=== PATIENT | female | born 1935 | race Hispanic/Latino ===

== ENCOUNTER 2020-05-26 04:58 | Inpatient (IN) | payer OTHER, MEDICARE ==
[~2020-05-26] VITALS: Ht 152.4 cm; Wt 84.6 kg
[~2020-05-26 04:58] MED LIST: ACET-2247 PO; CALC-483 PO; CHOL200012 PO; Cephalexin PO; FERR324T4 PO; FOLI1TAB15 PO; LISI-617 PO; METO25TA6 PO; METR500T PO; MULT-1258 PO; PANT40TA54 PO; ROSU20TA23 PO; ZINC56.7 TP
[2020-05-26 05:16] LABS: BASOPHILS % (AUTO) 0.5 % (0.0-5.0); EOSINOPHILS % (AUTO) 0.9 % (0.0-8.0); HEMATOCRIT 37.2 % (36-48); LYMPHOCYTES % (AUTO) 22.5 % (21.0-51.0); MEAN CORPUSCULAR HGB CONC 32.8 g/dL (32.0-36.0); MEAN CORPUSCULAR VOLUME 88.4 fL (79-99); MONOCYTES % (AUTO) 5.6 % (3.0-13.0); NEUTROPHILS % (AUTO) 70.2 % (40.0-77.0); PLATELET COUNT (AUTO) 252 K/uL (130-400); RED BLOOD CELL COUNT(AUTO) 4.21 MIL/uL (4.00-5.50); RED CELL DISTRIBUTION WIDTH 14.9 % (11.0-15.5); WHITE BLOOD COUNT (AUTO) 12.9 K/uL (4.8-10.8)
[2020-05-26 05:25] LABS: CREATININE 1.4 mg/dL (0.5-1.5); POTASSIUM 3.9 mmol/L (3.5-5.1)
[2020-05-26] MEDS ORDERED: ONDANSETRON HCL 4 MG/2 ML VIAL ONE ×2 (05:28→07:17)
[2020-05-26 05:29] LABS: INR 0.94 (0.85-1.15); PARTIAL THROMBOPLASTIN TIME 23.4 SEC (26.3-35.5); PROTHROMBIN TIME 10.2 SEC (9.6-11.6)
[2020-05-26] MEDS ORDERED: MORPHINE SULFATE 4 MG/1ML SYG ONE ×3 (05:29→10:08)
[2020-05-26 05:30] LABS: ALBUMIN 3.3 g/dL (3.5-5.0); BILIRUBIN,TOTAL 0.7 mg/dL (0.2-1.0); TOTAL PROTEIN, SERUM 7.7 g/dL (6.0-8.3)
[2020-05-26 05:52] LABS: APPEARANCE,URINE Cloudy (CLEAR); BILIRUBIN,URINE Negative (NEGATIVE); COLOR,URINE Yellow (YELLOW); GLUCOSE, URINE (UA) TRACE mg/dL (NEGATIVE); KETONES,URINE Negative (NEGATIVE); LEUKOCYTE ESTERASE ,URINE Moderate (NEGATIVE); NITRATE,URINE Positive (NEGATIVE); OCCULT BLOOD,URINE Trace (NEGATIVE); PROTEIN,URINE POS 1+ mg/dL (NEGATIVE); UROBILINOGEN,URINE 0.2 mg/dL (0.2-1.0)
[2020-05-26 05:59] LABS: BACTERIA,URINE Many /HPF (None Seen); MUCUS,URINE Few LPF (None Seen); SQUAMOUS EPITHELIAL CELL,UR Rare /HPF (0-2)
[2020-05-26] MEDS ORDERED: IOHEXOL-350 75 ML VIAL IV ONE (06:06)
[2020-05-26] MEDS ORDERED: ONDANSETRON HCL 4 MG/2 ML VIAL IVP PRN (09:00)
[2020-05-26] MEDS ORDERED: SODIUM CHLORIDE 0.9% 1000ML 1,000 ML IV SCH ×2 (09:00→11:17)
[2020-05-26] MEDS ORDERED: MORPHINE SULFATE 4 MG/1ML SYG IVP PRN (09:00)
[2020-05-26] MEDS ORDERED: KETOROLAC TROMETHAMINE 15MG/ML ONE (10:08)
[2020-05-26 10:45] VITALS: BP 116/77
[2020-05-26] MEDS ORDERED: KETOROLAC TROMETHAMINE 15MG/ML IV PRN (11:00)
[2020-05-26] MEDS ORDERED: HYDROCODONE/ACETAMINOPHEN 5/325 MG TAB PO PRN (11:30)
[2020-05-26] MEDS ORDERED: INSULIN R PO SS1 SQ SCH (11:30)
[2020-05-26] MEDS ORDERED: NITROGLYCERIN 0.4 MG SL TAB SL PRN (11:30)
[2020-05-26] MEDS ORDERED: LACTULOSE 20 GM/30 ML UDCUP PO PRN (11:30)
[2020-05-26] MEDS ORDERED: ONDANSETRON HCL 4 MG/2 ML VIAL IV PRN (11:30)
[2020-05-26] MEDS ORDERED: ACETAMINOPHEN 325 MG TAB PO PRN (11:30)
[2020-05-26] MEDS: CEFTRIAXONE SODIUM 1 GM IVP SCH (12:04)
[2020-05-26] MEDS: INSULIN HUMULIN R 100 UNIT/ML 3ML SQ SCH ×3 (12:07→21:00)
[2020-05-26] MEDS: ACETAMINOPHEN EXTRA STRENGTH 500 MG TABLET PO SCH ×3 (12:08→21:00)
[2020-05-26] MEDS ORDERED: POTA-79 PO (12:24)
[2020-05-26] MEDS ORDERED: LISI-617 PO (12:24)
[2020-05-26] MEDS ORDERED: FURO-152 PO (12:24)
[2020-05-26] MEDS ORDERED: FISH1CAP50 PO (12:24)
[2020-05-26] MEDS ORDERED: GLIM1TAB18 PO (12:24)
--- NOTE | 2020-05-26 12:56 | NUR ---
DCP IA done by Lyle Segovia RN. As per Lyle spoke to daughter in law on facesheet Federica Cano . As per daughter in law pt is assist with ADL's, lives at home w/spouse, daughter Shaylee Sheffield lives close by. Pt hsa a provider 36hrs/wk, walker, shower chair, uses [facility] for meds. Feels safe to go back home, family able to assist with transportation and needs as necessary. Prefer to have pt go home at this time. Will wait for MD recommendations. DC plan to home once stable. CM to cont to follow up. Addendum: 05/26/20 at 1300 by MARIANNA SWEENEY LVN CM Amended: Links added.
[2020-05-26] MEDS ORDERED: INSLAN SQ (15:15)
[2020-05-26] MEDS ORDERED: METOPROLOL TARTRATE 1 MG/ML 5ML VIAL IV SCH (15:45)
[2020-05-26 16:00] VITALS: BP 167/94
[2020-05-26] MEDS: SODIUM CHLORIDE 0.9% 1000ML 1,000 ML IV SCH (16:03)
[2020-05-26] MEDS ORDERED: HALOPERIDOL LACTATE 5 MG/ML VIAL IM SCH (17:00)
[2020-05-26] MEDS ORDERED: DiphenhydrAMINE HCL 50 MG/ML VIAL IM SCH (17:00)
[2020-05-26] MEDS ORDERED: HALOPERIDOL LACTATE 5 MG/ML VIAL ONE (17:07)
[2020-05-26] MEDS ORDERED: DiphenhydrAMINE HCL 50 MG/ML VIAL ONE (17:08)
[2020-05-26] MEDS: HALOPERIDOL LACTATE 5 MG/ML VIAL IM SCH (17:44)
--- NOTE | 2020-05-26 18:36 | NUR ---
UNABLE TO PERFORM 2DECHO AND RLE US VENOUS COMPLETED NOT BLE DUE TO PATIENT AGITATION AND AFTER GIVEN HALDOL AND BENADRYL DOSE PRN. SARAH GAMA TECH SAID HE WOULD ATTEMPT TO TRY TOMORROW IN A.M. HE MADE ALESSANDRA DUCKWORTH AWARE. BLE VENOUS DOPPLER WAS NOT COMPLETED DUE TO PATIENT AGITATION. JUSTIN [employer] WAS ABLE TO COMPLETE VENOUS DOPPLER TO RLE BUT WAS NOT ABLE TO COMPLETE LLE. HUY HAYWOOD ASSISTED JUSTIN TO HOLD PATIENT WHILE JUSTIN COMPLETED RLE VENOUS DOPPLER. HOWEVER, JUSTIN WAS NOT ABLE TO COMPLETE BLE VENOUS DOPPLER BECAUSE PT SCRATCHED HER AND BECAME MORE AGITATED. EKG WAS NOT ABLE TO BE COMPLETED DUE TO PATIENT AGITATION. CALLED TELE MONITORREYMUNDO TO FOLLOW UP METOPROLOL IV DOSE ORDERED; PT WIT SR 67. WILL REPORT TO INCOMING TO BOOK CLEANER NURSE TO ATTEMPT EKG WHEN PATIENT CALM AND COOPERATIVE WHEN TIRED. WILL CONTINUE TO FOLLOW.
[2020-05-26 20:00] VITALS: BP 122/44
[2020-05-26] MEDS: METOPROLOL TARTRATE 25 MG TAB PO SCH (21:00)
[2020-05-26] MEDS: ATORVASTATIN CALCIUM 40 MG TABLET PO SCH (21:00)
[2020-05-26] MEDS: FAMOTIDINE 20MG TAB 20 MG TAB PO SCH (21:00)
--- NOTE | 2020-05-26 21:27 | NUR ---
PIERO PAGED D/T INCREASED PT AGITATION. PT PULLING ON SULLIVAN AND REMOVED X2 PIVS. MITTENS WERE PLACED, PT MANAGED TO TAKE OFF MITTENS MULTIPLE TIMES. PT REFUSING TO TAKE MEDS. PT NOT ALLOWING STAFF TO GET NEAR TO PLACE NEW PIV, CLEAN PT OR REPOSITION. ALESSANDRA ROMANO ORDERED ATIVAN 1MG IV X ONE. READ BACK ORDER VIA TELEPHONE.
[2020-05-26] MEDS ORDERED: LORAZEPAM 2 MG/ML 1 ML VIAL IVP ONE (21:30)
--- NOTE | 2020-05-26 22:15 | NUR ---
PIERO PLATT PT'S BP DECREASED TO 66/32 HR IN 70S, O2 100% ON 2 L PER NC. BRIAN LOWERY ORDERED 250 CC BOLUS TO BE ADMINISTERED NOW AND TO ASSESS BP WITH A MANUAL BP CUFF. CARRIED OUT ORDERS. BP CHECK AFTER BOLUS WAS 98/62 WITH MANUAL CUFF. MAINTENANCE FLUIDS AT 50 CC CONTINUED.
[2020-05-26 22:44] VITALS: BP 98/62
[2020-05-26 23:15] VITALS: BP 98/58
[2020-05-27] VITALS (33 sets, daily range): BP systolic 71–139; BP diastolic 26–58
[2020-05-27 05:24] LABS: BASOPHILS % (AUTO) 0.3 % (0.0-5.0); EOSINOPHILS % (AUTO) 1.8 % (0.0-8.0); HEMATOCRIT 30.1 % (36-48); LYMPHOCYTES % (AUTO) 18.6 % (21.0-51.0); MEAN CORPUSCULAR HEMOGLOBIN 28.9 pg (27.0-33.0); MEAN CORPUSCULAR HGB CONC 32.2 g/dL (32.0-36.0); MEAN CORPUSCULAR VOLUME 89.6 fL (79-99); MONOCYTES % (AUTO) 10.8 % (3.0-13.0); NEUTROPHILS % (AUTO) 68.2 % (40.0-77.0); PLATELET COUNT (AUTO) 206 K/uL (130-400); RED BLOOD CELL COUNT(AUTO) 3.36 MIL/uL (4.00-5.50); RED CELL DISTRIBUTION WIDTH 15.6 % (11.0-15.5); WHITE BLOOD COUNT (AUTO) 12.6 K/uL (4.8-10.8)
[2020-05-27 05:42] LABS: HEMOGLOBIN A1C 8.6 % (4.0-6.0)
[2020-05-27 05:56] LABS: ALBUMIN 2.9 g/dL (3.5-5.0); BILIRUBIN,TOTAL 0.5 mg/dL (0.2-1.0); CREATININE 1.9 mg/dL (0.5-1.5); POTASSIUM 4.5 mmol/L (3.5-5.1); TOTAL PROTEIN, SERUM 6.9 g/dL (6.0-8.3)
[2020-05-27] MEDS: INSULIN HUMULIN R 100 UNIT/ML 3ML SQ SCH ×4 (07:30→21:00)
[2020-05-27] MEDS ORDERED: LISINOPRIL 5 MG TABLET PO SCH (09:00)
[2020-05-27] MEDS ORDERED: FUROSEMIDE 20 MG TABLET PO SCH (09:00)
[2020-05-27] MEDS: ACETAMINOPHEN EXTRA STRENGTH 500 MG TABLET PO SCH ×4 (09:14→21:21)
[2020-05-27] MEDS: FAMOTIDINE 20MG TAB 20 MG TAB PO SCH ×2 (09:14→21:21)
[2020-05-27] MEDS: METOPROLOL TARTRATE 25 MG TAB PO SCH ×2 (09:15→21:21)
[2020-05-27] MEDS: ENOXAPARIN SODIUM 30 MG/0.3 ML SQ SCH (09:15)
[2020-05-27] MEDS: POTASSIUM CHLORIDE 20 MEQ ERTAB PO SCH (09:15)
[2020-05-27] MEDS: CEFTRIAXONE SODIUM 1 GM IVP SCH (10:10)
[2020-05-27] MEDS: HALOPERIDOL LACTATE 5 MG/ML VIAL IM SCH (10:10)
[2020-05-27] MEDS: SODIUM CHLORIDE 0.9% 1000ML 1,000 ML IV SCH (11:45)
--- NOTE | 2020-05-27 13:22 | NUR ---
med informed Dr. Healy that patient received lovenox 30 mg this am. he states to proceed with scheduled surgery
[2020-05-27] MEDS ORDERED: DEXAMETHASONE SOD PHOSPHATE 10MG/ML 1ML VIAL ONE (14:09)
[2020-05-27] MEDS ORDERED: SUCCINYLCHOLINE CHLORIDE 20 MG/ML 10 ML VIAL ONE (14:09)
[2020-05-27] MEDS ORDERED: GLYCOPYRROLATE 1 MG/5 ML SYRINGE ONE (14:09)
[2020-05-27] MEDS ORDERED: PROPOFOL 10 MG/ML 20ML VIAL IV ONE (14:09)
[2020-05-27] MEDS ORDERED: LIDOCAINE PF 2% 5ML ABBOJECT ONE (14:09)
[2020-05-27] MEDS ORDERED: FENTANYL CITRATE PF 50 MCG/1 ML 2ML VIAL ONE (14:10)
[2020-05-27] MEDS ORDERED: ROCURONIUM 10MG/1ML SYR 10 MG/ML ML ONE ×2 (14:10→15:36)
[2020-05-27] MEDS ORDERED: NEOSTIGMINE 5MG/5ML SYR IV ONE (14:10)
[2020-05-27] MEDS ORDERED: ONDANSETRON HCL 4 MG/2 ML VIAL ONE (14:10)
[2020-05-27] MEDS ORDERED: ROPIVACAINE 0.5% 5MG/ML 30ML IJ ONE (14:16)
[2020-05-27] MEDS: CEFAZOLIN SODIUM 1 GM VIAL ONE ×2 (14:57→15:50)
[2020-05-27] MEDS ORDERED: EPHEDRINE SULFATE 50 MG/ML AMPULE ONE ×3 (15:27→17:07)
[2020-05-27] MEDS ORDERED: SUGAMMADEX SODIUM 200 MG/2 ML VIAL IV ONE (17:28)
--- NOTE | 2020-05-27 17:40 | NUR ---
received patient and noted swelling +3 to incision site to lower ext area, when i received report from nurse from or , jj mentioned it was already swollen, advised nurse in report Sergio Ricardo and had him observe site when transfered to unit.
[2020-05-27] MEDS ORDERED: ALBUMIN (HUMAN) 5% 250 ML IV ONE (18:31)
[2020-05-27] MEDS: ATORVASTATIN CALCIUM 40 MG TABLET PO SCH (21:21)
[2020-05-28] VITALS (7 sets, daily range): BP systolic 104–163; BP diastolic 58–93
[2020-05-28] MEDS: ACETAMINOPHEN EXTRA STRENGTH 500 MG TABLET PO SCH ×5 (01:00→22:50)
[2020-05-28] MEDS: MORPHINE SULFATE 4 MG/1ML SYG IVP PRN ×4 (01:03→05:02)
[2020-05-28 04:14] LABS: BASOPHILS % (AUTO) 0.1 % (0.0-5.0); HEMATOCRIT 23.2 % (36-48); LYMPHOCYTES % (AUTO) 3.9 % (21.0-51.0); MEAN CORPUSCULAR HEMOGLOBIN 28.6 pg (27.0-33.0); MEAN CORPUSCULAR HGB CONC 30.6 g/dL (32.0-36.0); MEAN CORPUSCULAR VOLUME 93.5 fL (79-99); MONOCYTES % (AUTO) 6.5 % (3.0-13.0); NEUTROPHILS % (AUTO) 87.2 % (40.0-77.0); PLATELET COUNT (AUTO) 215 K/uL (130-400); RED BLOOD CELL COUNT(AUTO) 2.48 MIL/uL (4.00-5.50); RED CELL DISTRIBUTION WIDTH 16.1 % (11.0-15.5); WHITE BLOOD COUNT (AUTO) 9.1 K/uL (4.8-10.8)
[2020-05-28 04:31] LABS: ALBUMIN 2.8 g/dL (3.5-5.0); BILIRUBIN,TOTAL 0.4 mg/dL (0.2-1.0); CREATININE 2.1 mg/dL (0.5-1.5); POTASSIUM 3.7 mmol/L (3.5-5.1)
[2020-05-28] MEDS: INSULIN HUMULIN R 100 UNIT/ML 3ML SQ SCH ×4 (06:20→21:00)
[2020-05-28] MEDS: SODIUM CHLORIDE 0.9% 1000ML 1,000 ML IV SCH (07:45)
[2020-05-28] MEDS: METOPROLOL TARTRATE 25 MG TAB PO SCH ×2 (08:25→21:50)
[2020-05-28] MEDS: FAMOTIDINE 20MG TAB 20 MG TAB PO SCH ×2 (08:25→21:50)
[2020-05-28] MEDS: ENOXAPARIN SODIUM 30 MG/0.3 ML SQ SCH (08:26)
[2020-05-28] MEDS: POTASSIUM CHLORIDE 20 MEQ ERTAB PO SCH (08:27)
[2020-05-28] MEDS: CEFTRIAXONE SODIUM 1 GM IVP SCH (12:03)
[2020-05-28] MEDS: INSULIN GLARGINE 100 UNITS/ML 10 ML VIAL SQ SCH (21:00)
[2020-05-28] MEDS: ATORVASTATIN CALCIUM 40 MG TABLET PO SCH (21:50)
[2020-05-28 22:09] LABS: HEMATOCRIT 20.5 % (36-48)
[2020-05-28] MEDS: HALOPERIDOL LACTATE 5 MG/ML VIAL IM PRN (23:03)
[2020-05-28] MEDS: DiphenhydrAMINE HCL 50 MG/ML VIAL IM PRN (23:03)
[2020-05-29 03:38] VITALS: BP 142/71
[2020-05-29] MEDS: SODIUM CHLORIDE 0.9% 1000ML 1,000 ML IV SCH ×2 (03:45→23:45)
[2020-05-29 05:58] LABS: BASOPHILS % (AUTO) 0.1 % (0.0-5.0); EOSINOPHILS % (AUTO) 1.8 % (0.0-8.0); HEMATOCRIT 26.3 % (36-48); LYMPHOCYTES % (AUTO) 12.7 % (21.0-51.0); MEAN CORPUSCULAR HEMOGLOBIN 29.4 pg (27.0-33.0); MEAN CORPUSCULAR HGB CONC 32.3 g/dL (32.0-36.0); MONOCYTES % (AUTO) 10.8 % (3.0-13.0); NEUTROPHILS % (AUTO) 74.2 % (40.0-77.0); PLATELET COUNT (AUTO) 189 K/uL (130-400); RED BLOOD CELL COUNT(AUTO) 2.89 MIL/uL (4.00-5.50); RED CELL DISTRIBUTION WIDTH 15.1 % (11.0-15.5); WHITE BLOOD COUNT (AUTO) 7.4 K/uL (4.8-10.8)
[2020-05-29 06:16] LABS: ALBUMIN 2.5 g/dL (3.5-5.0); BILIRUBIN,TOTAL 1.3 mg/dL (0.2-1.0); CREATININE 1.8 mg/dL (0.5-1.5); POTASSIUM 3.6 mmol/L (3.5-5.1); TOTAL PROTEIN, SERUM 5.8 g/dL (6.0-8.3)
[2020-05-29] MEDS: INSULIN HUMULIN R 100 UNIT/ML 3ML SQ SCH ×5 (06:50→21:00)
--- NOTE | 2020-05-29 07:44 | NUR ---
PATIENT UPDATE TRANSFUSED 1 UNIT OF PRBC FOR HB OF 6.5 AND HCT OF 20.5 LAST NIGHT, TOLERATED WELL. NO UNTOWARD BLOOD TRANSFUSION REACTIONS NOTED. HB CAME UP TO 8.5 AFTER THE TRANSFUSION. PRN BENADRYL WITH HALDOL ADMINISTERED BUT DIDN'T DO ANYTHING AT ALL, PT REMAINED RESTLESS, PULLED OUT THE NEW IV SITE STARTED FOR THE BLOOD TRANSFUSION. CUATE MITTENS ON, CMS CHECKS DONE, ADEQUATE. SULLIVAN CATHETER DISCONTINUED THIS AM AT 061
[2020-05-29 08:00] VITALS: BP 116/88
[2020-05-29] MEDS: HALOPERIDOL LACTATE 5 MG/ML VIAL IM PRN (08:23)
[2020-05-29] MEDS: DiphenhydrAMINE HCL 50 MG/ML VIAL IM PRN (08:24)
[2020-05-29] MEDS: METOPROLOL TARTRATE 25 MG TAB PO SCH ×2 (08:51→22:21)
[2020-05-29] MEDS: FAMOTIDINE 20MG TAB 20 MG TAB PO SCH ×2 (08:51→22:21)
[2020-05-29] MEDS: ENOXAPARIN SODIUM 30 MG/0.3 ML SQ SCH (08:52)
[2020-05-29] MEDS: POTASSIUM CHLORIDE 20 MEQ ERTAB PO SCH (08:52)
--- NOTE | 2020-05-29 10:13 | NUR ---
SPOKE TO CESARIO HAQUE, REGARDING PT WEIGHT BEARING STATUS. PER CESARIO HAQUE, PT IS NWB LEFT LEG FOR 6 WEEKS.
[2020-05-29] MEDS: CEFTRIAXONE SODIUM 1 GM IVP SCH (10:21)
[2020-05-29] MEDS: MORPHINE SULFATE 4 MG/1ML SYG IVP PRN (10:22)
[2020-05-29 12:00] VITALS: BP 103/67
[2020-05-29] MEDS: ACETAMINOPHEN EXTRA STRENGTH 500 MG TABLET PO SCH ×2 (13:20→21:00)
[2020-05-29 14:10] LABS: HEMATOCRIT 25.6 % (36-48)
--- NOTE | 2020-05-29 16:11 | NUR ---
PATIENT BEING VERY COMBATIVE, HITTING AND SPITTING AT NURSES. BENADRYL AND HALDOL GIVEN EARLIER BUT DIDN'T HELPED. BRYON ACADEMIC ADVISOR AWARE, NO NEW ORDERS.
[2020-05-29 20:32] VITALS: BP 160/40
[2020-05-29] MEDS: INSULIN GLARGINE 100 UNITS/ML 10 ML VIAL SQ SCH (21:00)
[2020-05-29 21:13] LABS: HEMATOCRIT 27.8 % (36-48)
[2020-05-29] MEDS: ATORVASTATIN CALCIUM 40 MG TABLET PO SCH (22:21)
[2020-05-29 23:49] VITALS: BP 157/40
[2020-05-30 03:09] VITALS: BP 145/87
[2020-05-30] MEDS: INSULIN HUMULIN R 100 UNIT/ML 3ML SQ SCH ×7 (06:28→21:00)
[2020-05-30 06:38] LABS: CREATININE 1.3 mg/dL (0.5-1.5)
[2020-05-30 08:22] LABS: BASOPHILS % (AUTO) 0.2 % (0.0-5.0); HEMATOCRIT 28.6 % (36-48); LYMPHOCYTES % (AUTO) 14.7 % (21.0-51.0); MEAN CORPUSCULAR HEMOGLOBIN 30.1 pg (27.0-33.0); MEAN CORPUSCULAR HGB CONC 33.2 g/dL (32.0-36.0); MEAN CORPUSCULAR VOLUME 90.5 fL (79-99); MONOCYTES % (AUTO) 8.6 % (3.0-13.0); PLATELET COUNT (AUTO) 236 K/uL (130-400); RED BLOOD CELL COUNT(AUTO) 3.16 MIL/uL (4.00-5.50); RED CELL DISTRIBUTION WIDTH 15.8 % (11.0-15.5); WHITE BLOOD COUNT (AUTO) 8.6 K/uL (4.8-10.8)
[2020-05-30] MEDS: FAMOTIDINE 20MG TAB 20 MG TAB PO SCH ×2 (09:00→20:03)
[2020-05-30] MEDS: METOPROLOL TARTRATE 25 MG TAB PO SCH ×2 (09:00→20:03)
[2020-05-30] MEDS: ACETAMINOPHEN EXTRA STRENGTH 500 MG TABLET PO SCH ×4 (09:00→20:03)
[2020-05-30] MEDS: CEFTRIAXONE SODIUM 1 GM IVP SCH (11:15)
[2020-05-30] MEDS: POTASSIUM CHLORIDE 20 MEQ ERTAB PO SCH (13:23)
[2020-05-30 13:47] LABS: HEMATOCRIT 30.1 % (36-48)
--- NOTE | 2020-05-30 14:55 | NUR ---
DYSPHAGIA EVAL COMPLETED. +S/S OF ASPIRATION AT THIS TIME. RECOMMEND PUREE SOLIDS, NECTAR THICK LIQUIDS, PILLS CRUSHED TOLERATED. ROTARY DRILLER HELPER COORDINATED WITH NURSE HEBERT. ROTARY DRILLER HELPER WILL RE-EVALUATE WITHIN A WEEK OR WHEN PATIENT'S STATUS IMPROVES. ROTARY DRILLER HELPER WILL FOLLOW PATIENT. Addendum: 05/30/[address] QUINTIN RASHID Amended: Links added.
[2020-05-30] MEDS: SODIUM CHLORIDE 0.9% 1000ML 1,000 ML IV SCH (19:45)
[2020-05-30 20:00] VITALS: BP 178/73
[2020-05-30] MEDS: ATORVASTATIN CALCIUM 40 MG TABLET PO SCH (20:03)
[2020-05-30] MEDS ORDERED: MORPHINE SULFATE 4 MG/1ML SYG IVP PRN (20:15)
[2020-05-30] MEDS ORDERED: HYDRALAZINE HCL 20 MG/ML VIAL IV PRN (20:45)
[2020-05-30] MEDS: INSULIN GLARGINE 100 UNITS/ML 10 ML VIAL SQ SCH (21:35)
[2020-05-30 23:39] VITALS: BP 153/56
[2020-05-31 02:45] VITALS: BP 154/103
[2020-05-31 05:06] VITALS: BP 116/65
[2020-05-31 06:05] LABS: BASOPHILS % (AUTO) 0.3 % (0.0-5.0); EOSINOPHILS % (AUTO) 1.4 % (0.0-8.0); HEMATOCRIT 30.1 % (36-48); LYMPHOCYTES % (AUTO) 12.7 % (21.0-51.0); MEAN CORPUSCULAR HEMOGLOBIN 29.4 pg (27.0-33.0); MEAN CORPUSCULAR HGB CONC 31.9 g/dL (32.0-36.0); MONOCYTES % (AUTO) 9.1 % (3.0-13.0); NEUTROPHILS % (AUTO) 75.8 % (40.0-77.0); PLATELET COUNT (AUTO) 255 K/uL (130-400); RED BLOOD CELL COUNT(AUTO) 3.27 MIL/uL (4.00-5.50); WHITE BLOOD COUNT (AUTO) 10.2 K/uL (4.8-10.8)
[2020-05-31 06:23] LABS: CREATININE 1.2 mg/dL (0.5-1.5); POTASSIUM 3.3 mmol/L (3.5-5.1)
[2020-05-31] MEDS: INSULIN HUMULIN R 100 UNIT/ML 3ML SQ SCH ×7 (06:27→21:59)
[2020-05-31 08:00] VITALS: BP 134/58
[2020-05-31 08:01] LABS: ALBUMIN 2.5 g/dL (3.5-5.0); BILIRUBIN,TOTAL 0.8 mg/dL (0.2-1.0); TOTAL PROTEIN, SERUM 6.4 g/dL (6.0-8.3)
[2020-05-31] MEDS: METOPROLOL TARTRATE 25 MG TAB PO SCH ×2 (09:00→21:57)
[2020-05-31] MEDS: ACETAMINOPHEN EXTRA STRENGTH 500 MG TABLET PO SCH ×4 (09:00→21:57)
[2020-05-31] MEDS: POTASSIUM CHLORIDE 20 MEQ ERTAB PO SCH (09:00)
[2020-05-31] MEDS: FAMOTIDINE/PF 20 MG/2 ML VIAL IV SCH (09:00)
--- NOTE | 2020-05-31 10:00 | NUR ---
SWALLOW TREATMENT COMPLETED. Pt RAISED TO 90 DEGREES IN BED. Pt CURRENTLY WITH MITTENS ON AND SITTER. Pt COOPERATIVE AT THE TIME OF THE SESSION. Pt CURRENTLY ON PUREED AND NECTAR-THICK LIQUIDS. Pt PARTICIPATED IN THERAPEUTIC TRIALS OF PUREED, NECTAR-THICK LIQUIDS X10 WITH NO OVERT S/S OF ASPIRATION. LIQUIDS PRESENTED VIA TSP. TECHNOLOGY INTERN INSTRUCTED SITTER TO PROVIDE LIQUIDS VIA TSP TO MODULATE AMOUNT OF LIQUID PRESENTED. SHE VERBALIZED AGREEMENT AND COMPLIANCE. RESULTS AND RECOMMENDATIONS COMMUNICATED WITH NURSE PATEL. Addendum: 05/31/20 at 1505 by KRISTIE BROWN [facility] Amended: Links added.
[2020-05-31] MEDS: CEFTRIAXONE SODIUM 1 GM IVP SCH (11:15)
[2020-05-31 12:00] VITALS: BP 152/45
[2020-05-31] MEDS: SODIUM CHLORIDE 0.9% 1000ML 1,000 ML IV SCH (15:45)
[2020-05-31 16:00] VITALS: BP 153/57
[2020-05-31 20:00] VITALS: BP 138/44
[2020-05-31] MEDS: ATORVASTATIN CALCIUM 40 MG TABLET PO SCH (21:57)
[2020-05-31] MEDS: INSULIN GLARGINE 100 UNITS/ML 10 ML VIAL SQ SCH (21:58)
[2020-06-01] VITALS: BP 140/58
[2020-06-01 04:00] VITALS: BP 125/56
[2020-06-01 04:12] LABS: BASOPHILS % (AUTO) 0.1 % (0.0-5.0); EOSINOPHILS % (AUTO) 0.4 % (0.0-8.0); LYMPHOCYTES % (AUTO) 8.6 % (21.0-51.0); MEAN CORPUSCULAR HEMOGLOBIN 29.6 pg (27.0-33.0); MEAN CORPUSCULAR HGB CONC 32.4 g/dL (32.0-36.0); MEAN CORPUSCULAR VOLUME 91.6 fL (79-99); MONOCYTES % (AUTO) 7.3 % (3.0-13.0); NEUTROPHILS % (AUTO) 82.8 % (40.0-77.0); PLATELET COUNT (AUTO) 262 K/uL (130-400); RED BLOOD CELL COUNT(AUTO) 3.71 MIL/uL (4.00-5.50); RED CELL DISTRIBUTION WIDTH 16.3 % (11.0-15.5); WHITE BLOOD COUNT (AUTO) 13.6 K/uL (4.8-10.8)
[2020-06-01] MEDS: INSULIN HUMULIN R 100 UNIT/ML 3ML SQ SCH ×7 (06:10→20:45)
[2020-06-01 07:15] VITALS: BP 132/65
[2020-06-01] MEDS: ACETAMINOPHEN EXTRA STRENGTH 500 MG TABLET PO SCH ×4 (09:00→21:04)
[2020-06-01 09:42] LABS: CREATININE 2.1 mg/dL (0.5-1.5); MAGNESIUM 1.8 mg/dL (1.80-2.40); POTASSIUM 3.2 mmol/L (3.5-5.1)
[2020-06-01] MEDS: METOPROLOL TARTRATE 25 MG TAB PO SCH ×2 (10:33→21:03)
[2020-06-01] MEDS: POTASSIUM CHLORIDE 20 MEQ ERTAB PO SCH (10:33)
[2020-06-01] MEDS: FAMOTIDINE/PF 20 MG/2 ML VIAL IV SCH (10:33)
[2020-06-01 11:15] VITALS: BP 158/57
[2020-06-01] MEDS ORDERED: MAGNESIUM 2GM PREMIX 50ML 50 ML IV PRN (11:15)
[2020-06-01] MEDS: CEFTRIAXONE SODIUM 1 GM IVP SCH (11:42)
[2020-06-01] MEDS: SODIUM CHLORIDE 0.9% 1000ML 1,000 ML IV SCH ×2 (11:45→23:50)
--- NOTE | 2020-06-01 14:01 | NUR ---
CONSULT FOR DR. STEVEN DONE AND HE VERBALIZED THAT HE WILL SEE THE PATIENT TOMORROW AND IF THERE IS A NEED FOR NEUROLOGY TO SEE HER TODAY THAT TO CALL THE TELENEUROLOGY. I EXPLAINED TO DR. STEVEN THAT THERE IS NO NEED FOR TELENEURO I JUST WANT HIM TO BE AWARE OF THE CONSULT AND DR. SOLIS IS ALSO AWARE THAT SHE WILL BE SEEN TOMORROW BY HIM.
[2020-06-01 16:15] VITALS: BP 153/59
[2020-06-01] MEDS ORDERED: SODIUM CHLORIDE 0.9% 500ML 500 ML IV SCH (17:45)
[2020-06-01 20:28] VITALS: BP 120/96
[2020-06-01] MEDS: HEPARIN SODIUM 5000UNIT/ML 1ML VIAL SQ SCH (21:03)
[2020-06-01] MEDS: ATORVASTATIN CALCIUM 40 MG TABLET PO SCH (21:03)
[2020-06-01] MEDS: INSULIN GLARGINE 100 UNITS/ML 10 ML VIAL SQ SCH (21:06)
--- NOTE | 2020-06-01 21:20 | NUR ---
Magnesium 1.80 Covered per protocol.
[2020-06-02 00:15] VITALS: BP 136/39
--- NOTE | 2020-06-02 04:00 | NUR ---
No urine output since 1744. Bladder scan result: 135 ml Informed on-call hospitalist with an order to insert Everett Cath.
[2020-06-02 04:38] LABS: CREATININE,URINE RANDOM 141 mg/dL (30-135); SODIUM,URINE RANDOM 103 mmol/l (40-220)
[2020-06-02] MEDS: INSULIN HUMULIN R 100 UNIT/ML 3ML SQ SCH ×7 (05:07→19:51)
[2020-06-02 05:23] VITALS: BP 130/52
[2020-06-02 06:49] LABS: BASOPHILS % (AUTO) 0.3 % (0.0-5.0); EOSINOPHILS % (AUTO) 0.4 % (0.0-8.0); HEMATOCRIT 29.8 % (36-48); MEAN CORPUSCULAR HEMOGLOBIN 30.3 pg (27.0-33.0); MEAN CORPUSCULAR HGB CONC 31.9 g/dL (32.0-36.0); MEAN CORPUSCULAR VOLUME 94.9 fL (79-99); NEUTROPHILS % (AUTO) 77.4 % (40.0-77.0); PLATELET COUNT (AUTO) 320 K/uL (130-400); RED BLOOD CELL COUNT(AUTO) 3.14 MIL/uL (4.00-5.50); RED CELL DISTRIBUTION WIDTH 17.1 % (11.0-15.5); WHITE BLOOD COUNT (AUTO) 13.4 K/uL (4.8-10.8)
[2020-06-02 07:03] LABS: MAGNESIUM 2.3 mg/dL (1.80-2.40); POTASSIUM 3.9 mmol/L (3.5-5.1); URIC ACID 6.1 mg/dL (2.6-7.2)
[2020-06-02 08:00] VITALS: BP 133/55
[2020-06-02] MEDS: HEPARIN SODIUM 5000UNIT/ML 1ML VIAL SQ SCH ×2 (08:05→19:43)
[2020-06-02] MEDS: ACETAMINOPHEN EXTRA STRENGTH 500 MG TABLET PO SCH ×4 (08:51→19:51)
[2020-06-02] MEDS: METOPROLOL TARTRATE 25 MG TAB PO SCH ×2 (08:51→19:43)
[2020-06-02] MEDS: FAMOTIDINE/PF 20 MG/2 ML VIAL IV SCH (08:51)
[2020-06-02] MEDS: POTASSIUM CHLORIDE 20 MEQ ERTAB PO SCH (08:52)
[2020-06-02] MEDS: SODIUM CHLORIDE 0.9% 1000ML 1,000 ML IV SCH ×2 (09:25→19:58)
[2020-06-02] MEDS: CEFTRIAXONE SODIUM 1 GM IVP SCH (11:17)
[2020-06-02 12:00] VITALS: BP 159/54
[2020-06-02 14:49] LABS: APPEARANCE,URINE Clear (CLEAR); BILIRUBIN,URINE Negative (NEGATIVE); COLOR,URINE Yellow (YELLOW); GLUCOSE, URINE (UA) 500 mg/dL (NEGATIVE); KETONES,URINE 15 mg/dL (NEGATIVE); LEUKOCYTE ESTERASE ,URINE Small (NEGATIVE); NITRATE,URINE Negative (NEGATIVE); OCCULT BLOOD,URINE Trace (NEGATIVE); PROTEIN,URINE POS 1+ mg/dL (NEGATIVE)
[2020-06-02 15:05] LABS: BACTERIA,URINE Few /HPF (None Seen)
[2020-06-02 15:06] LABS: SQUAMOUS EPITHELIAL CELL,UR Few /HPF (0-2)
[2020-06-02 15:07] LABS: MUCUS,URINE Rare LPF (None Seen)
[2020-06-02 17:33] VITALS: BP 164/67
[2020-06-02] MEDS: ATORVASTATIN CALCIUM 40 MG TABLET PO SCH (19:43)
[2020-06-02] MEDS: INSULIN GLARGINE 100 UNITS/ML 10 ML VIAL SQ SCH (19:44)
[2020-06-02 20:00] VITALS: BP 135/64
[2020-06-03] VITALS (7 sets, daily range): BP systolic 117–169; BP diastolic 37–76
[2020-06-03 04:34] LABS: BASOPHILS % (AUTO) 0.2 % (0.0-5.0); EOSINOPHILS % (AUTO) 2.2 % (0.0-8.0); HEMATOCRIT 24.8 % (36-48); LYMPHOCYTES % (AUTO) 16.8 % (21.0-51.0); MEAN CORPUSCULAR HEMOGLOBIN 29.7 pg (27.0-33.0); MEAN CORPUSCULAR HGB CONC 31.9 g/dL (32.0-36.0); MEAN CORPUSCULAR VOLUME 93.2 fL (79-99); MONOCYTES % (AUTO) 13.3 % (3.0-13.0); NEUTROPHILS % (AUTO) 66.2 % (40.0-77.0); PLATELET COUNT (AUTO) 310 K/uL (130-400); RED BLOOD CELL COUNT(AUTO) 2.66 MIL/uL (4.00-5.50); RED CELL DISTRIBUTION WIDTH 17.1 % (11.0-15.5); WHITE BLOOD COUNT (AUTO) 10.4 K/uL (4.8-10.8)
[2020-06-03 04:53] LABS: % IRON SATURATION 20.9 % (22-44)
[2020-06-03 04:57] LABS: CREATININE 1.4 mg/dL (0.5-1.5); POTASSIUM 3.1 mmol/L (3.5-5.1)
[2020-06-03] MEDS: SODIUM CHLORIDE 0.9% 1000ML 1,000 ML IV SCH ×2 (06:41→16:01)
[2020-06-03] MEDS: INSULIN HUMULIN R 100 UNIT/ML 3ML SQ SCH ×7 (07:30→21:00)
[2020-06-03] MEDS: METOPROLOL TARTRATE 25 MG TAB PO SCH ×2 (09:50→21:49)
[2020-06-03] MEDS: FAMOTIDINE/PF 20 MG/2 ML VIAL IV SCH (09:50)
[2020-06-03] MEDS: ACETAMINOPHEN EXTRA STRENGTH 500 MG TABLET PO SCH ×4 (09:50→21:00)
--- NOTE | 2020-06-03 10:13 | NUR ---
FOLLOW UP COMPLETED. Pt WITH 100% INTAKE FOR DINNER. POOR P.O. THIS AM PER NURSE. PRODUCTION ZONE LEADER COORDINATED WITH LOAD DROPPERRAKESH RICO DUE TO LOW P.O. FOR 2/3 MEALS DAILY. Pt TOLERATING CURRENT PUREED, NECTAR-THICK LIQUID DIET WITH NO OVERT S/S OF ASPIRATION. PRODUCTION ZONE LEADER WILL CONTINUE TO FOLLOW Pt. Addendum: 06/03/20 at 1029 by KRISTIE BROWN [facility] Amended: Links added.
[2020-06-03] MEDS ORDERED: DEXTROSE 50%-WATER 50 ML DISP.SYRIN IV ONE (10:35)
--- NOTE | 2020-06-03 10:45 | NUR ---
LOW BLOOD GLUCOSE FINGERSTICK BLOOD GLUCOSE REPORTED 46. UNABLE TO TAKE SUFFICIENT AMOUNT PO GLUCOSE INTAKE, RETAIL SALESPERSON REPORTED SHE ATE 3 SPOONFULS OF PUDDING AND STARTED REFUSED TO EAT ANYMORE. PATIENT IS ABLE TO OPEN EYES AND RESPOND TO VERBAL AND PHYSICAL STIMULI, UNABLE TO COOPERATE TO EAT MORE. ADMINISTERED D50W 50ML AMP. WILL CONTINUE TO MONITOR.
--- NOTE | 2020-06-03 10:55 | NUR ---
BLOOD GLUCOSE RECHECK BLOOD GLUCOSE RECHECK 138. PAGED PRINTING MANAGER HOSPITALIST TO REPORT BLOOD GLUCOSE AND RESPONSE TO TREATMENT.
--- NOTE | 2020-06-03 11:10 | NUR ---
RDSCREEN - LOS X 8, POOR PO PER ST, NUTRITION SUPPLEMENTATION Pt admitted for L-Femoral shaft Fx, s/p fall. Pt with AMS, advanced dementia. Pt tolerating Regular, Puree, NTL diet order with no report of GI distress. Poor PO intake as of this morning. Monitored: BG 47, Ca 7.5, Fe 37, Alb 2.5. Obesity Class I. Recommend Ensure TID, Chilled to NTL Recommend continue current diet order RD to continue to monitor for increased PO intake and other nutrition concerns. Please notify as additional nutrition concerns arise Thank you. Addendum: 06/03/20 at [address] Amended: Links added.
[2020-06-03] MEDS: CEFTRIAXONE SODIUM 1 GM IVP SCH (11:44)
--- NOTE | 2020-06-03 14:00 | NUR ---
DR. CHAD CARROLL ROUNDING. SPOKE TO MD REGARDING PATIENTS EATING PATTERN, BLOOD GLUCOSE, INSULIN ORDERS AND POTASSIUM LEVEL.
[2020-06-03] MEDS ORDERED: POTASSIUM CHLORIDE 20 MEQ ERTAB PO SCH (15:15)
[2020-06-03] MEDS: IRON SUCROSE COMPLEX 300 MG in SODIUM CHLORIDE 0.9% 250 ML IV SCH (16:58)
[2020-06-03] MEDS ORDERED: IRON SUCROSE COMPLEX 300 MG in SODIUM CHLORIDE 0.9% 100 ML IV SCH (17:15)
[2020-06-03] MEDS: ATORVASTATIN CALCIUM 40 MG TABLET PO SCH (21:00)
[2020-06-04 03:57] LABS: BASOPHILS % (AUTO) 0.3 % (0.0-5.0); HEMATOCRIT 26.4 % (36-48); LYMPHOCYTES % (AUTO) 12.4 % (21.0-51.0); MEAN CORPUSCULAR HEMOGLOBIN 29.7 pg (27.0-33.0); MEAN CORPUSCULAR HGB CONC 31.4 g/dL (32.0-36.0); MEAN CORPUSCULAR VOLUME 94.6 fL (79-99); MONOCYTES % (AUTO) 10.3 % (3.0-13.0); NEUTROPHILS % (AUTO) 74.1 % (40.0-77.0); PLATELET COUNT (AUTO) 318 K/uL (130-400); RED BLOOD CELL COUNT(AUTO) 2.79 MIL/uL (4.00-5.50); RED CELL DISTRIBUTION WIDTH 17.4 % (11.0-15.5); WHITE BLOOD COUNT (AUTO) 10.3 K/uL (4.8-10.8)
[2020-06-04 04:01] VITALS: BP 126/35
[2020-06-04 04:09] LABS: POTASSIUM 3.6 mmol/L (3.5-5.1)
[2020-06-04] MEDS: INSULIN HUMULIN R 100 UNIT/ML 3ML SQ SCH ×6 (06:32→16:15)
[2020-06-04 08:00] VITALS: BP 119/61
[2020-06-04] MEDS: FAMOTIDINE/PF 20 MG/2 ML VIAL IV SCH (08:53)
[2020-06-04] MEDS: METOPROLOL TARTRATE 25 MG TAB PO SCH (08:56)
[2020-06-04] MEDS: ACETAMINOPHEN EXTRA STRENGTH 500 MG TABLET PO SCH ×2 (08:56→13:32)
[2020-06-04 12:00] VITALS: BP 142/55
[2020-06-04] MEDS: IRON SUCROSE COMPLEX 300 MG in SODIUM CHLORIDE 0.9% 250 ML IV SCH (13:31)
[2020-06-04] MEDS: CEFTRIAXONE SODIUM 1 GM IVP SCH (13:32)
[2020-06-04 16:00] VITALS: BP 132/98
[2020-06-04] MEDS ORDERED: ATOR40TA69 PO (16:37)
[2020-06-04] MEDS ORDERED: APIX2.5T PO (16:37)
[2020-06-04] MEDS ORDERED: CEFD300C3 PO (16:37)
--- NOTE | 2020-06-04 19:50 | NUR ---
DISCHARGE PATIENT GIVEN DISCHARGE INSTRUCTIONS VIA TEACH BACK. INSTRUCTIONS GIVEN TO ANTONIETA SIMON (DAUGHTER IN LAW) VIA PHONE. PATIENT WILL BE TRANSPORTED TO PATIENT'S DAUGHTER'S HOUSE ([facility]) IN [place] VIA EMS. PATIENT TO FOLLOW UP WITH DR. CHEN ON 05/30/20 AT 0915. FOLLOW UP APPOINTMENT TO BE MADE WITH DR. PATHAK IN 3 TO 5 DAYS. E-RX SENT TO [facility] IN [place]. PATIENT TO CONTINUE WITH PUREED DIET. PATIENT TO CONTINUE WITH NWB TO LEFT LEG X 6 WEEKS. PATIENT STABLE AT THIS TIME. EMS PRESENT TO TRANSPORT PATIENT HOME AT THIS TIME.
[2020-06-04] MEDS ORDERED: APIXABAN 2.5 MG TABLET PO SCH (21:00)
== END 2020-06-04 20:00 | disposition home or self-care (01) | DRG 481 ==
LOC: EDH 04:58 → EDHIP 07:25 → 3BH 10:09
PROVIDERS: ADMIT Internal Medicine; ATTEND Internal Medicine
PROC: 0QS736Z Reposition Left Upper Femur with Intramedullary Internal Fixation Device, Percutaneous Approach (ICD-10-PCS; principal; 2020-05-27 16:09)
PROC: 3E0T3BZ Introduction of Anesthetic Agent into Peripheral Nerves and Plexi, Percutaneous Approach (ICD-10-PCS; 2020-05-27 16:09)
PROC: 30233N1 Transfusion of Nonautologous Red Blood Cells into Peripheral Vein, Percutaneous Approach (ICD-10-PCS; 2020-05-28)
DX: S72.22XA Displaced subtrochanteric fracture of left femur, initial encounter for closed fracture (principal); Z16.29 Resistance to other single specified antibiotic; I50.22 Chronic systolic (congestive) heart failure; N39.0 Urinary tract infection, site not specified; I13.0 Hypertensive heart and chronic kidney disease with heart failure and stage 1 through stage 4 chronic kidney disease, or unspecified chronic kidney disease; N17.9 Acute kidney failure, unspecified; I47.1 Supraventricular tachycardia; I44.7 Left bundle-branch block, unspecified; D64.9 Anemia, unspecified; E11.22 Type 2 diabetes mellitus with diabetic chronic kidney disease; F03.90 Unspecified dementia, unspecified severity, without behavioral disturbance, psychotic disturbance, mood disturbance, and anxiety; N18.3 Chronic kidney disease, stage 3 (moderate); I25.10 Atherosclerotic heart disease of native coronary artery without angina pectoris; B96.20 Unspecified Escherichia coli [E. coli] as the cause of diseases classified elsewhere; Z20.828 Contact with and (suspected) exposure to other viral communicable diseases; E78.5 Hyperlipidemia, unspecified; W18.30XA Fall on same level, unspecified, initial encounter; M85.852 Other specified disorders of bone density and structure, left thigh; M47.815 Spondylosis without myelopathy or radiculopathy, thoracolumbar region; K43.9 Ventral hernia without obstruction or gangrene; Z74.01 Bed confinement status; Y92.009 Unspecified place in unspecified non-institutional (private) residence as the place of occurrence of the external cause; Z95.1 Presence of aortocoronary bypass graft; Z82.5 Family history of asthma and other chronic lower respiratory diseases; Z83.3 Family history of diabetes mellitus; Z82.49 Family history of ischemic heart disease and other diseases of the circulatory system; Z82.0 Family history of epilepsy and other diseases of the nervous system; Z82.3 Family history of stroke; Z86.73 Personal history of transient ischemic attack (TIA), and cerebral infarction without residual deficits; Y93.89 Activity, other specified; Y99.8 Other external cause status
CPT/HCPCS: 36415; 36430; 70450; 71045; 71260; 72125; 73503; 73552; 73560; 74177; 76770; 76882; 80048; 80053; 81001; 82550; 82570; 82947; 82948; 83036; 83540; 83550; 83735; 83935; 84300; 84484; 84550; 85014; 85018; 85025; 85610; 85730; 86850; 86900; 86901; 86923; 87040; 87077; 87088; 87186; 87426; 92526; 92610; 93005; 93306; 93356; 93970; 97039; A4344; A4606; G0378; J0330; J0360; J0690; J0696; J1100; J1200; J1630; J1644; J1650; J1756; J1815; J1885; J2001; J2060; J2270; J2405; J2704; J2710; J2795; J3010; J3475; J3490; J7030; J7050; J7070; P9016; P9045; Q9967; U0003